=== PATIENT | female | born 1950 | race Caucasian/White ===

== ENCOUNTER 2021-08-12 15:26 | Inpatient (IN) ==
[2021-08-12] MEDS: *HR* FentaNYL (PF) 100 MCG/2 ML VIAL IVP STA ×2 (17:42→19:36)
[2021-08-12 18:03] LABS: Basophils # 0.1 K/mcL (0.0-0.2); Basophils % 0.5 %; Eosinophils # 0.3 K/mcL (0.0-0.6); Eosinophils % 1.9 %; Hematocrit 31.6 % (35.3-44.9); Hemoglobin 10.5 g/dL (11.5-15.4); Immature Granulocytes % 0.8 % (0-4); Lymphocytes # 2.3 K/mcL (0.6-4.6); Lymphocytes % 17.7 %; Mean Corpuscular HGB Conc 33.2 g/dL (31.6-35.5); Mean Corpuscular Volume 87.3 fL (83.0-100.0); Mean Platelet Volume 9.1 fL (9.4-12.4); Monocytes % 7.5 %; Neutrophils # 9.2 K/mcL (1.6-8.9); Platelet Count 367 K/mcL (140-400); Red Blood Count 3.62 M/mcL (3.82-4.97); Red Cell Distribution Width 13.2 % (11.5-14.5); Segmented Neutrophils % 71.6 %; White Blood Count 12.9 K/mcL (4.3-11.1)
[2021-08-12 18:23] LABS: Calcium 8.6 mg/dL (8.6-10.3); Potassium 4.2 mEq/L (3.5-5.1)
[2021-08-12] MEDS ORDERED: Clindamycin 600 MG/50 ML 600 MG/50 ML IV.SOLN IVPB STA (19:04)
[2021-08-12] MEDS ORDERED: *HR* FentaNYL (PF) 100 MCG/2 ML VIAL IVP ONE (19:31)
[2021-08-12] MEDS ORDERED: Ondansetron ODT 4 MG TAB.RAPDIS SL PRN (20:22)
[2021-08-12] MEDS ORDERED: Naloxone 0.4 MG/ML INJ IVP PRN (20:22)
[2021-08-12] MEDS ORDERED: Acetaminophen 325 MG TABLET PO PRN (20:22)
[2021-08-12] MEDS ORDERED: Melatonin 3 MG TABLET PO PRN (20:22)
[2021-08-12] MEDS ORDERED: D5% in Water 1,000 ML IVC PRN (20:25)
[2021-08-12] MEDS ORDERED: *HR* Dextrose 50 % in Water (Syg) 50 ML SYRINGE IVP PRN (20:25)
[2021-08-12] MEDS ORDERED: Dextrose 4 GM Chewable Tablets PO PRN ×2 (20:25)
[2021-08-12] MEDS ORDERED: 0.9 % Sodium Chloride 1,000 ML IVC SCH (20:30)
[2021-08-12] MEDS: *HR* OxyCODONE Immed Rel 5 MG TABLET PO PRN (20:58)
[2021-08-12] MEDS ORDERED: Vancomycin 1 EACH in 0.9 % Sodium Chloride 250 ML IVPB PRN (23:00)
[2021-08-12] MEDS: *HR* HYDROcodone/Acet 5/325 mg TABLET PO PRN (23:39)
[2021-08-12] MEDS: Insulin LISPRO 300 UNITS/3 ML VIAL SUBQ SCH (23:40)
[2021-08-13] MEDS: carvediloL 25 MG TABLET PO SCH ×3 (01:32→17:33)
[2021-08-13] MEDS: Bumetanide 1 MG TABLET PO SCH ×4 (01:33→22:00)
[2021-08-13] MEDS: *HR* OxyCODONE Immed Rel 5 MG TABLET PO PRN ×4 (02:58→22:36)
[2021-08-13 05:26] LABS: Hematocrit 31.8 % (35.3-44.9); Hemoglobin 10.7 g/dL (11.5-15.4); Mean Corpuscular HGB Conc 33.6 g/dL (31.6-35.5); Mean Corpuscular Hemoglobin 28.6 pg (28.0-33.3); Mean Platelet Volume 9.2 fL (9.4-12.4); Platelet Count 342 K/mcL (140-400); Red Blood Count 3.74 M/mcL (3.82-4.97); Red Cell Distribution Width 13.3 % (11.5-14.5)
[2021-08-13] MEDS: Clindamycin 600 MG/50 ML 600 MG/50 ML IV.SOLN IVPB SCH ×2 (05:35→14:19)
[2021-08-13] MEDS: *HR* HYDROcodone/Acet 5/325 mg TABLET PO PRN ×2 (05:36→14:16)
[2021-08-13] MEDS: Sucralfate 1 GM TABLET PO SCH ×2 (08:16→17:33)
[2021-08-13 08:21] LABS: Calcium 8.4 mg/dL (8.6-10.3); Chol/HDL Ratio 5.1 (0-4.9); Magnesium 1.7 mg/dL (1.6-2.6); Phosphorous 3.1 mg/dL (2.7-4.5); Potassium 3.7 mEq/L (3.5-5.1)
[2021-08-13] MEDS: Insulin LISPRO 300 UNITS/3 ML VIAL SUBQ SCH ×4 (08:21→21:40)
[2021-08-13] MEDS ORDERED: amLODIPine 5 MG TABLET PO SCH (09:00)
[2021-08-13] MEDS ORDERED: 0.9 % Sodium Chloride 1,000 ML IVC SCH (10:00)
[2021-08-13] MEDS ORDERED: *HR* LORazepam 0.5 MG TABLET PO PRN (14:40)
[2021-08-13] MEDS ORDERED: Acetaminophen/Butalbital/CaffeineTABLET PO PRN (14:40)
[2021-08-13] MEDS ORDERED: Cefepime HCl 2,000 MG in 0.9 % Sodium Chloride Mini Bag 100 ML IVPB SCH ×2 (16:00)
[2021-08-13] MEDS ORDERED: hydrALAZINE 25 MG TABLET PO SCH (16:00)
[2021-08-13] MEDS ORDERED: Lidocaine HCL 4 ML Topical Solution (Laryng-O-Jet Kit Sterile Pak) TP ONE (18:28)
[2021-08-13] MEDS ORDERED: *HR* Propofol 200 MG/20 ML VIAL IVP ONE (18:28)
[2021-08-13] MEDS ORDERED: Ondansetron 4 MG/2 ML VIAL ONE (18:28)
[2021-08-13] MEDS ORDERED: Lidocaine -MPF 2% 5 ML VIAL ONE (18:28)
[2021-08-13] MEDS ORDERED: *HR* FentaNYL (PF) 100 MCG/2 ML VIAL ONE ×2 (19:00→19:35)
[2021-08-13] MEDS ORDERED: Ketamine HCL *QUVA* 50mg (1mL) SYRINGE ONE (19:19)
[2021-08-13] MEDS: *HR* HYDROmorphone (PF) 1 MG/ML SYRINGE ONE ×2 (19:58→20:03)
[2021-08-13] MEDS: *HR* HYDROmorphone PF 0.5 MG/0.5 ML SYRINGE IVP PRN ×2 (20:08→20:13)
[2021-08-13] MEDS ORDERED: Ringers Solution, Lactated 1,000 ML ONE (20:46)
[2021-08-13] MEDS ORDERED: metroNIDAZOLE 500 MG TABLET PO SCH (21:00)
[2021-08-13] MEDS ORDERED: Melatonin 3 MG TABLET PO SCH (21:00)
[2021-08-13] MEDS ORDERED: *HR* Dextrose 50 % in Water (Syg) 50 ML SYRINGE IVP PRN (21:30)
[2021-08-13] MEDS ORDERED: Dextrose 4 GM Chewable Tablets PO PRN ×2 (21:30)
[2021-08-13] MEDS ORDERED: Naloxone 0.4 MG/ML INJ IVP PRN (21:30)
[2021-08-13] MEDS ORDERED: Vancomycin 1 EACH in 0.9 % Sodium Chloride 250 ML IVPB PRN (21:30)
[2021-08-13] MEDS ORDERED: Acetaminophen 325 MG TABLET PO PRN (21:30)
[2021-08-13] MEDS ORDERED: D5% in Water 1,000 ML IVC PRN (21:30)
[2021-08-13] MEDS: Melatonin 3 MG TABLET PO SCH (21:57)
[2021-08-13] MEDS: Ondansetron ODT 4 MG TAB.RAPDIS SL PRN (21:58)
[2021-08-13] MEDS ORDERED: *HR* Metoprolol 5 MG/5 ML VIAL IVP ONE (22:09)
[2021-08-14] MEDS: Melatonin 3 MG TABLET PO PRN ×2 (00:19→21:21)
[2021-08-14] MEDS: hydrALAZINE 25 MG TABLET PO SCH ×3 (00:20→15:02)
[2021-08-14] MEDS: Acetaminophen/Butalbital/CaffeineTABLET PO PRN ×3 (00:20→21:19)
[2021-08-14] MEDS: 0.9 % Sodium Chloride 1,000 ML IVC SCH ×2 (00:30→13:02)
[2021-08-14] MEDS: Cefepime HCl 2,000 MG in 0.9 % Sodium Chloride Mini Bag 100 ML IVPB SCH ×2 (03:50→14:54)
[2021-08-14 04:05] LABS: Basophils # 0.1 K/mcL (0.0-0.2); Basophils % 0.4 %; Eosinophils # 0.1 K/mcL (0.0-0.6); Eosinophils % 0.4 %; Hematocrit 30.8 % (35.3-44.9); Hemoglobin 10.2 g/dL (11.5-15.4); Immature Granulocytes % 1.6 % (0-4); Lymphocytes # 1.6 K/mcL (0.6-4.6); Lymphocytes % 11.2 %; Mean Corpuscular HGB Conc 33.1 g/dL (31.6-35.5); Mean Corpuscular Hemoglobin 29.3 pg (28.0-33.3); Mean Corpuscular Volume 88.5 fL (83.0-100.0); Mean Platelet Volume 9.2 fL (9.4-12.4); Monocytes # 0.6 K/mcL (0.0-1.3); Monocytes % 4.4 %; Neutrophils # 11.5 K/mcL (1.6-8.9); Platelet Count 371 K/mcL (140-400); Red Blood Count 3.48 M/mcL (3.82-4.97); Red Cell Distribution Width 13.2 % (11.5-14.5)
[2021-08-14] MEDS: *HR* OxyCODONE Immed Rel 5 MG TABLET PO PRN ×3 (04:43→18:31)
[2021-08-14 05:34] LABS: Calcium 7.9 mg/dL (8.6-10.3); Potassium 3.8 mEq/L (3.5-5.1)
[2021-08-14] MEDS ORDERED: *HR* Enoxaparin 30 MG/0.3 ML SYRINGE SQ SCH ×2 (06:00)
[2021-08-14] MEDS: Sucralfate 1 GM TABLET PO SCH ×2 (06:16→14:52)
[2021-08-14] MEDS: metroNIDAZOLE 500 MG TABLET PO SCH ×3 (08:07→21:20)
[2021-08-14] MEDS: amLODIPine 5 MG TABLET PO SCH (08:07)
[2021-08-14] MEDS: carvediloL 25 MG TABLET PO SCH ×2 (08:08→16:50)
[2021-08-14] MEDS: Bumetanide 1 MG TABLET PO SCH ×2 (08:08→21:21)
[2021-08-14] MEDS: *HR* HYDROcodone/Acet 5/325 mg TABLET PO PRN ×2 (08:10→14:52)
[2021-08-14] MEDS: Insulin LISPRO 300 UNITS/3 ML VIAL SUBQ SCH ×4 (08:13→21:24)
[2021-08-14] MEDS: Ondansetron ODT 4 MG TAB.RAPDIS SL PRN (08:47)
[2021-08-14 13:02] LABS: Estimated Average Glucose 289 mg/dl; Hemoglobin A1C 11.7 %
[2021-08-14] MEDS: *HR* Heparin 5,000 UNIT/ML VIAL SQ SCH ×2 (14:53→21:23)
[2021-08-14] MEDS: Ondansetron 4 MG/2 ML VIAL IVP PRN ×2 (14:54→22:30)
[2021-08-14] MEDS: Melatonin 3 MG TABLET PO SCH (21:20)
[2021-08-15] MEDS: hydrALAZINE 25 MG TABLET PO SCH ×4 (00:44→23:23)
[2021-08-15] MEDS: *HR* OxyCODONE Immed Rel 5 MG TABLET PO PRN ×3 (00:45→21:48)
[2021-08-15] MEDS: Acetaminophen/Butalbital/CaffeineTABLET PO PRN ×4 (01:43→23:24)
[2021-08-15] MEDS: *HR* LORazepam 0.5 MG TABLET PO PRN ×2 (01:44→23:24)
[2021-08-15] MEDS: Cefepime HCl 2,000 MG in 0.9 % Sodium Chloride Mini Bag 100 ML IVPB SCH ×2 (05:02→15:41)
[2021-08-15] MEDS: *HR* Heparin 5,000 UNIT/ML VIAL SQ SCH ×3 (05:05→21:49)
[2021-08-15 06:21] LABS: Basophils # 0.1 K/mcL (0.0-0.2); Basophils % 0.5 %; Eosinophils # 0.2 K/mcL (0.0-0.6); Eosinophils % 1.6 %; Hematocrit 32.5 % (35.3-44.9); Hemoglobin 10.5 g/dL (11.5-15.4); Lymphocytes # 2.4 K/mcL (0.6-4.6); Lymphocytes % 21.5 %; Mean Corpuscular HGB Conc 32.3 g/dL (31.6-35.5); Mean Corpuscular Hemoglobin 28.2 pg (28.0-33.3); Mean Corpuscular Volume 87.4 fL (83.0-100.0); Mean Platelet Volume 9.1 fL (9.4-12.4); Monocytes # 0.8 K/mcL (0.0-1.3); Monocytes % 6.9 %; Neutrophils # 7.6 K/mcL (1.6-8.9); Platelet Count 387 K/mcL (140-400); Red Blood Count 3.72 M/mcL (3.82-4.97); Red Cell Distribution Width 13.4 % (11.5-14.5); Segmented Neutrophils % 68.5 %; White Blood Count 11.1 K/mcL (4.3-11.1)
[2021-08-15 06:48] LABS: Calcium 8.3 mg/dL (8.6-10.3); Magnesium 1.6 mg/dL (1.6-2.6); Phosphorous 2.9 mg/dL (2.7-4.5); Potassium 3.4 mEq/L (3.5-5.1)
[2021-08-15] MEDS: metroNIDAZOLE 500 MG TABLET PO SCH ×3 (08:17→21:50)
[2021-08-15] MEDS: *HR* HYDROcodone/Acet 5/325 mg TABLET PO PRN ×2 (08:17→15:42)
[2021-08-15] MEDS: Sucralfate 1 GM TABLET PO SCH ×2 (08:17→15:42)
[2021-08-15] MEDS: amLODIPine 5 MG TABLET PO SCH (08:17)
[2021-08-15] MEDS: carvediloL 25 MG TABLET PO SCH ×2 (08:18→15:43)
[2021-08-15] MEDS: Bumetanide 1 MG TABLET PO SCH ×2 (08:18→21:55)
[2021-08-15] MEDS: Insulin LISPRO 300 UNITS/3 ML VIAL SUBQ SCH ×4 (08:19→22:00)
[2021-08-15] MEDS: Insulin DETEMIR 100 UNIT/ML X5UNITS SUBQ SCH (09:35)
[2021-08-15] MEDS: Ondansetron 4 MG/2 ML VIAL IVP PRN ×2 (11:49→21:49)
[2021-08-15] MEDS: Melatonin 3 MG TABLET PO SCH (21:49)
[2021-08-15] MEDS: Melatonin 3 MG TABLET PO PRN (21:50)
[2021-08-16] MEDS: Cefepime HCl 2,000 MG in 0.9 % Sodium Chloride Mini Bag 100 ML IVPB SCH ×2 (03:59→15:37)
[2021-08-16] MEDS: *HR* OxyCODONE Immed Rel 5 MG TABLET PO PRN (03:59)
[2021-08-16] MEDS: Acetaminophen/Butalbital/CaffeineTABLET PO PRN ×4 (05:36→20:46)
[2021-08-16] MEDS: *HR* Heparin 5,000 UNIT/ML VIAL SQ SCH ×3 (05:37→20:48)
[2021-08-16 05:58] LABS: Basophils # 0.1 K/mcL (0.0-0.2); Basophils % 0.8 %; Eosinophils # 0.3 K/mcL (0.0-0.6); Eosinophils % 2.2 %; Hematocrit 31.4 % (35.3-44.9); Hemoglobin 10.4 g/dL (11.5-15.4); Immature Granulocytes % 1.8 % (0-4); Lymphocytes # 2.1 K/mcL (0.6-4.6); Lymphocytes % 18.3 %; Mean Corpuscular HGB Conc 33.1 g/dL (31.6-35.5); Mean Corpuscular Hemoglobin 29.1 pg (28.0-33.3); Mean Platelet Volume 8.8 fL (9.4-12.4); Monocytes # 0.9 K/mcL (0.0-1.3); Monocytes % 7.4 %; Neutrophils # 8.1 K/mcL (1.6-8.9); Platelet Count 399 K/mcL (140-400); Red Blood Count 3.57 M/mcL (3.82-4.97); Red Cell Distribution Width 13.4 % (11.5-14.5); Segmented Neutrophils % 69.5 %; White Blood Count 11.7 K/mcL (4.3-11.1)
[2021-08-16 06:24] LABS: Magnesium 1.5 mg/dL (1.6-2.6); Phosphorous 2.5 mg/dL (2.7-4.5)
[2021-08-16 06:25] LABS: Calcium 8.2 mg/dL (8.6-10.3); Potassium 3.8 mEq/L (3.5-5.1)
[2021-08-16] MEDS: Insulin DETEMIR 100 UNIT/ML X5UNITS SUBQ SCH (08:18)
[2021-08-16] MEDS: Insulin LISPRO 300 UNITS/3 ML VIAL SUBQ SCH ×4 (08:18→20:48)
[2021-08-16] MEDS: amLODIPine 5 MG TABLET PO SCH (08:19)
[2021-08-16] MEDS: metroNIDAZOLE 500 MG TABLET PO SCH ×3 (08:19→20:37)
[2021-08-16] MEDS: carvediloL 25 MG TABLET PO SCH ×2 (08:19→15:36)
[2021-08-16] MEDS: hydrALAZINE 25 MG TABLET PO SCH ×2 (08:19→15:36)
[2021-08-16] MEDS: Sucralfate 1 GM TABLET PO SCH ×2 (08:19→15:36)
[2021-08-16] MEDS: Bumetanide 1 MG TABLET PO SCH ×2 (08:19→20:36)
[2021-08-16] MEDS: *HR* HYDROcodone/Acet 5/325 mg TABLET PO PRN (09:32)
[2021-08-16] MEDS ORDERED: *HR* FentaNYL (PF) 100 MCG/2 ML VIAL ONE ×2 (10:05→11:26)
[2021-08-16] MEDS ORDERED: *HR* Midazolam HCl 2 MG/2 ML VIAL ONE ×2 (10:05→11:30)
[2021-08-16] MEDS ORDERED: *HR* Heparin 10,000 UNIT/10 ML VIAL ONE (10:05)
[2021-08-16] MEDS ORDERED: Heparin 1,000 UNITS/500 mL 500 ML ONE (10:06)
[2021-08-16] MEDS ORDERED: 0.9 % Sodium Chloride 1,000 ML ONE (10:06)
[2021-08-16] MEDS: Morphine Sulfate ER (12 HR) 15 MG TABLET.ER PO SCH (15:36)
[2021-08-16] MEDS ORDERED: Morphine Sulfate ER (12 HR) 15 MG TABLET.ER PO SCH (18:00)
[2021-08-16] MEDS: Melatonin 3 MG TABLET PO SCH (20:38)
[2021-08-16] MEDS: *HR* LORazepam 0.5 MG TABLET PO PRN (20:47)
[2021-08-17] MEDS: Morphine Sulfate ER (12 HR) 15 MG TABLET.ER PO SCH ×4 (00:38→23:57)
[2021-08-17] MEDS: hydrALAZINE 25 MG TABLET PO SCH ×4 (00:38→23:57)
[2021-08-17] MEDS: Acetaminophen/Butalbital/CaffeineTABLET PO PRN ×3 (00:40→08:27)
[2021-08-17] MEDS: Cefepime HCl 2,000 MG in 0.9 % Sodium Chloride Mini Bag 100 ML IVPB SCH ×2 (04:03→17:18)
[2021-08-17] MEDS: *HR* Heparin 5,000 UNIT/ML VIAL SQ SCH ×3 (07:26→21:55)
[2021-08-17] MEDS: amLODIPine 5 MG TABLET PO SCH (08:27)
[2021-08-17] MEDS: Bumetanide 1 MG TABLET PO SCH ×2 (08:28→21:53)
[2021-08-17] MEDS: metroNIDAZOLE 500 MG TABLET PO SCH ×3 (08:28→21:54)
[2021-08-17] MEDS: Sucralfate 1 GM TABLET PO SCH ×2 (08:28→17:18)
[2021-08-17] MEDS: carvediloL 25 MG TABLET PO SCH ×2 (08:28→17:18)
[2021-08-17] MEDS: Insulin LISPRO 300 UNITS/3 ML VIAL SUBQ SCH ×4 (08:36→21:37)
[2021-08-17] MEDS: Insulin DETEMIR 100 UNIT/ML X5UNITS SUBQ SCH (08:36)
[2021-08-17] MEDS: Ondansetron 4 MG/2 ML VIAL IVP PRN (08:36)
[2021-08-17] MEDS ORDERED: Morphine Sulfate ER (12 HR) 15 MG TABLET.ER PO ONE (10:48)
[2021-08-17] MEDS: Melatonin 3 MG TABLET PO SCH (21:55)
[2021-08-18] MEDS: Acetaminophen/Butalbital/CaffeineTABLET PO PRN (00:25)
[2021-08-18] MEDS: Cefepime HCl 2,000 MG in 0.9 % Sodium Chloride Mini Bag 100 ML IVPB SCH ×2 (03:53→18:41)
[2021-08-18 04:50] LABS: Basophils # 0.1 K/mcL (0.0-0.2); Basophils % 0.6 %; Eosinophils # 0.4 K/mcL (0.0-0.6); Eosinophils % 3.4 %; Hematocrit 28.8 % (35.3-44.9); Hemoglobin 9.4 g/dL (11.5-15.4); Immature Granulocytes % 1.6 % (0-4); Lymphocytes # 2.5 K/mcL (0.6-4.6); Lymphocytes % 20.1 %; Mean Corpuscular HGB Conc 32.6 g/dL (31.6-35.5); Mean Corpuscular Hemoglobin 28.5 pg (28.0-33.3); Mean Corpuscular Volume 87.3 fL (83.0-100.0); Mean Platelet Volume 8.8 fL (9.4-12.4); Monocytes # 0.9 K/mcL (0.0-1.3); Monocytes % 7.3 %; Neutrophils # 8.3 K/mcL (1.6-8.9); Platelet Count 356 K/mcL (140-400); Red Cell Distribution Width 13.8 % (11.5-14.5); White Blood Count 12.5 K/mcL (4.3-11.1)
[2021-08-18] MEDS: *HR* Heparin 5,000 UNIT/ML VIAL SQ SCH ×3 (05:03→22:03)
[2021-08-18 05:09] LABS: Potassium 3.6 mEq/L (3.5-5.1)
[2021-08-18] MEDS: Insulin LISPRO 300 UNITS/3 ML VIAL SUBQ SCH ×4 (09:13→21:53)
[2021-08-18] MEDS: hydrALAZINE 25 MG TABLET PO SCH ×3 (10:00→18:04)
[2021-08-18] MEDS: carvediloL 25 MG TABLET PO SCH ×3 (10:00→18:04)
[2021-08-18] MEDS: Insulin DETEMIR 100 UNIT/ML X5UNITS SUBQ SCH (10:00)
[2021-08-18] MEDS: Bumetanide 1 MG TABLET PO SCH ×3 (10:00→21:53)
[2021-08-18] MEDS: Morphine Sulfate ER (12 HR) 15 MG TABLET.ER PO SCH (10:00)
[2021-08-18] MEDS: Sucralfate 1 GM TABLET PO SCH ×3 (10:00→18:04)
[2021-08-18] MEDS: amLODIPine 5 MG TABLET PO SCH ×2 (10:00→11:58)
[2021-08-18] MEDS: metroNIDAZOLE 500 MG TABLET PO SCH ×3 (10:00→22:08)
[2021-08-18] MEDS ORDERED: *HR* OxyCODONE/APAP 5/325 TABLET PO PRN (11:02)
[2021-08-18] MEDS ORDERED: Morphine Sulfate ER (12 HR) 15 MG TABLET.ER PO SCH (18:00)
[2021-08-18] MEDS: Melatonin 3 MG TABLET PO SCH (21:54)
[2021-08-19 00:25] LABS: Bilirubin,Urine Negative (Negative); Blood,Urine Negative (Negative); Clarity,Urine Clear (Clear); Color,Urine Light-Yellow (Yellow); Glucose,Urine (UA) Normal (Normal); Ketones,Urine Negative (Negative); Leukocyte Esterase,Urine Negative (Negative); Mucus,Urine Few per lpf (None-Few); Nitrite,Urine Negative (Negative); PH,Urine 6.5 pH Units (5.0-8.0); Protein,Urine 100 mg/dL (Neg-Trace); RBC,Urine 0-3 per hpf (0-3); Specific Gravity,Urine 1.015 (1.010-1.025); Squamous Epithelial Cell,Urine Few per hpf (None-Few); Urobilinogen,Urine Normal (Normal); WBC,Urine 0-3 per hpf (0-3)
[2021-08-19] MEDS: hydrALAZINE 25 MG TABLET PO SCH ×4 (00:49→23:58)
[2021-08-19] MEDS: Cefepime HCl 2,000 MG in 0.9 % Sodium Chloride Mini Bag 100 ML IVPB SCH ×2 (03:50→17:11)
[2021-08-19 04:58] LABS: Basophils # 0.1 K/mcL (0.0-0.2); Basophils % 0.6 %; Eosinophils # 0.4 K/mcL (0.0-0.6); Eosinophils % 2.6 %; Hematocrit 31.8 % (35.3-44.9); Hemoglobin 10.7 g/dL (11.5-15.4); Immature Granulocytes % 1.6 % (0-4); Lymphocytes # 2.6 K/mcL (0.6-4.6); Lymphocytes % 17.9 %; Mean Corpuscular HGB Conc 33.6 g/dL (31.6-35.5); Mean Corpuscular Hemoglobin 29.2 pg (28.0-33.3); Mean Corpuscular Volume 86.9 fL (83.0-100.0); Mean Platelet Volume 9.1 fL (9.4-12.4); Monocytes # 0.8 K/mcL (0.0-1.3); Monocytes % 5.3 %; Neutrophils # 10.5 K/mcL (1.6-8.9); Platelet Count 442 K/mcL (140-400); Red Blood Count 3.66 M/mcL (3.82-4.97); Red Cell Distribution Width 13.6 % (11.5-14.5); White Blood Count 14.6 K/mcL (4.3-11.1)
[2021-08-19 05:06] LABS: INR 1.4; Prothrombin Time 15.5 Seconds (9.4-12.1)
[2021-08-19 05:17] LABS: Calcium 8.6 mg/dL (8.6-10.3); Potassium 3.4 mEq/L (3.5-5.1)
[2021-08-19] MEDS: *HR* Heparin 5,000 UNIT/ML VIAL SQ SCH ×3 (05:54→20:46)
[2021-08-19] MEDS ORDERED: Vancomycin 500 MG in 0.9 % Sodium Chloride Mini Bag 100 ML IVPB ONE (06:00)
[2021-08-19] MEDS: amLODIPine 5 MG TABLET PO SCH (06:27)
[2021-08-19] MEDS: Insulin LISPRO 300 UNITS/3 ML VIAL SUBQ SCH ×5 (07:47→20:46)
[2021-08-19] MEDS: Sucralfate 1 GM TABLET PO SCH ×2 (07:57→17:11)
[2021-08-19] MEDS: carvediloL 25 MG TABLET PO SCH ×2 (07:57→17:11)
[2021-08-19] MEDS: metroNIDAZOLE 500 MG TABLET PO SCH ×3 (07:57→20:45)
[2021-08-19] MEDS: Bumetanide 1 MG TABLET PO SCH ×2 (07:57→20:48)
[2021-08-19] MEDS: Insulin DETEMIR 100 UNIT/ML X5UNITS SUBQ SCH (08:33)
[2021-08-19] MEDS: Melatonin 3 MG TABLET PO SCH (20:46)
[2021-08-19 21:31] LABS: VBG HCO3 20 mEq/L (21-27); VBG PCO2 34 mmHg (41-51); VBG PH 7.38 pH Units (7.32-7.42); VBG PO2 136 mmHg (25-50)
[2021-08-20] MEDS: *HR* LORazepam 0.5 MG TABLET PO PRN (00:36)
[2021-08-20] MEDS: Melatonin 3 MG TABLET PO PRN (00:36)
[2021-08-20] MEDS: Cefepime HCl 2,000 MG in 0.9 % Sodium Chloride Mini Bag 100 ML IVPB SCH (03:44)
[2021-08-20] MEDS: *HR* Heparin 5,000 UNIT/ML VIAL SQ SCH ×3 (03:45→21:35)
[2021-08-20] MEDS ORDERED: Vancomycin 500 MG in 0.9 % Sodium Chloride Mini Bag 100 ML IVPB SCH (08:00)
[2021-08-20 08:08] LABS: Calcium 8.7 mg/dL (8.6-10.3); Magnesium 1.9 mg/dL (1.6-2.6); Phosphorous 2.2 mg/dL (2.7-4.5); Potassium 3.3 mEq/L (3.5-5.1)
[2021-08-20 08:09] LABS: Basophils # 0.1 K/mcL (0.0-0.2); Basophils % 0.7 %; Eosinophils # 0.5 K/mcL (0.0-0.6); Eosinophils % 2.8 %; Hematocrit 31.1 % (35.3-44.9); Hemoglobin 10.6 g/dL (11.5-15.4); Immature Granulocytes % 1.5 % (0-4); Lymphocytes # 2.7 K/mcL (0.6-4.6); Lymphocytes % 16.3 %; Mean Corpuscular HGB Conc 34.1 g/dL (31.6-35.5); Mean Corpuscular Hemoglobin 29.7 pg (28.0-33.3); Mean Corpuscular Volume 87.1 fL (83.0-100.0); Mean Platelet Volume 9.1 fL (9.4-12.4); Monocytes # 0.9 K/mcL (0.0-1.3); Monocytes % 5.4 %; Neutrophils # 12.1 K/mcL (1.6-8.9); Platelet Count 495 K/mcL (140-400); Red Blood Count 3.57 M/mcL (3.82-4.97); Red Cell Distribution Width 13.6 % (11.5-14.5); Segmented Neutrophils % 73.3 %; White Blood Count 16.5 K/mcL (4.3-11.1)
[2021-08-20] MEDS: amLODIPine 5 MG TABLET PO SCH (09:02)
[2021-08-20] MEDS: metroNIDAZOLE 500 MG TABLET PO SCH ×3 (09:02→21:32)
[2021-08-20] MEDS: Bumetanide 1 MG TABLET PO SCH ×2 (09:02→21:34)
[2021-08-20] MEDS: Insulin DETEMIR 100 UNIT/ML X5UNITS SUBQ SCH (09:05)
[2021-08-20] MEDS: Sucralfate 1 GM TABLET PO SCH (10:48)
[2021-08-20] MEDS: Insulin LISPRO 300 UNITS/3 ML VIAL SUBQ SCH ×2 (10:48→13:45)
[2021-08-20] MEDS: hydrALAZINE 25 MG TABLET PO SCH (11:25)
[2021-08-20] MEDS: carvediloL 25 MG TABLET PO SCH (11:26)
[2021-08-20] MEDS ORDERED: Potassium Phosphate 44 MEQ in 0.9 % Sodium Chloride 250 ML IVPB ONE (12:15)
[2021-08-20] MEDS ORDERED: *HR* FentaNYL (PF) 100 MCG/2 ML VIAL ONE (15:44)
[2021-08-20] MEDS ORDERED: Lidocaine -MPF 2% 5 ML VIAL ONE (15:44)
[2021-08-20] MEDS ORDERED: Ondansetron 4 MG/2 ML VIAL ONE (15:44)
[2021-08-20] MEDS ORDERED: Ringers Solution, Lactated 1,000 ML IVC SCH ×2 (16:00→18:30)
[2021-08-20] MEDS ORDERED: Bupivacaine/Clonidine Syringe 20 ML, Syringe LUER-LOK 1 EACH TP ONE (16:15)
[2021-08-20] MEDS ORDERED: *HR* HYDROMORPHONE 2 MG/ML VIAL ONE (17:17)
[2021-08-20] MEDS ORDERED: Dextrose 4 GM Chewable Tablets PO PRN ×2 (18:30)
[2021-08-20] MEDS ORDERED: Acetaminophen 325 MG TABLET PO PRN (18:30)
[2021-08-20] MEDS ORDERED: D5% in Water 1,000 ML IVC PRN (18:30)
[2021-08-20] MEDS ORDERED: *HR* LORazepam 0.5 MG TABLET PO PRN (18:30)
[2021-08-20] MEDS ORDERED: Melatonin 3 MG TABLET PO PRN (18:30)
[2021-08-20] MEDS ORDERED: *HR* Dextrose 50 % in Water (Syg) 50 ML SYRINGE IVP PRN (18:30)
[2021-08-20] MEDS ORDERED: Naloxone 0.4 MG/ML INJ IVP PRN (18:30)
[2021-08-20] MEDS ORDERED: Lactobacillus 1 EACH CAP.SPRINK PO SCH (21:00)
[2021-08-20] MEDS ORDERED: Insulin LISPRO 300 UNITS/3 ML VIAL SUBQ SCH (21:00)
[2021-08-20] MEDS ORDERED: Melatonin 3 MG TABLET PO SCH (21:00)
[2021-08-20] MEDS: Lactobacillus 1 EACH CAP.SPRINK PO SCH (21:33)
[2021-08-20] MEDS: *HR* OxyCODONE/APAP 5/325 TABLET PO PRN (21:34)
[2021-08-21] MEDS ORDERED: Potassium Phosphate 44 MEQ in 0.9 % Sodium Chloride 250 ML IVPB ONE (00:45)
[2021-08-21] MEDS: hydrALAZINE 25 MG TABLET PO SCH ×3 (01:08→09:51)
[2021-08-21] MEDS: Ondansetron 4 MG/2 ML VIAL IVP PRN ×2 (01:09→10:24)
[2021-08-21] MEDS: Acetaminophen/Butalbital/CaffeineTABLET PO PRN ×2 (01:41→05:46)
[2021-08-21 01:55] LABS: Basophils # 0.1 K/mcL (0.0-0.2); Basophils % 0.5 %; Eosinophils % 0.2 %; Hematocrit 30.3 % (35.3-44.9); Hemoglobin 9.9 g/dL (11.5-15.4); Immature Granulocytes % 1.4 % (0-4); Lymphocytes # 1.6 K/mcL (0.6-4.6); Lymphocytes % 12.1 %; Mean Corpuscular HGB Conc 32.7 g/dL (31.6-35.5); Mean Corpuscular Hemoglobin 28.8 pg (28.0-33.3); Mean Corpuscular Volume 88.1 fL (83.0-100.0); Mean Platelet Volume 9.3 fL (9.4-12.4); Monocytes # 0.3 K/mcL (0.0-1.3); Monocytes % 2.2 %; Platelet Count 499 K/mcL (140-400); Red Blood Count 3.44 M/mcL (3.82-4.97); Red Cell Distribution Width 13.7 % (11.5-14.5); Segmented Neutrophils % 83.6 %; White Blood Count 13.1 K/mcL (4.3-11.1)
[2021-08-21 01:56] LABS: Calcium 8.4 mg/dL (8.6-10.3); Magnesium 1.8 mg/dL (1.6-2.6); Phosphorous 3.2 mg/dL (2.7-4.5); Potassium 3.6 mEq/L (3.5-5.1)
[2021-08-21] MEDS ORDERED: Cefepime HCl 2,000 MG in 0.9 % Sodium Chloride Mini Bag 100 ML IVPB SCH (04:00)
[2021-08-21] MEDS: *HR* Heparin 5,000 UNIT/ML VIAL SQ SCH ×2 (04:58→13:10)
[2021-08-21] MEDS: *HR* OxyCODONE/APAP 5/325 TABLET PO PRN (05:46)
[2021-08-21] MEDS: Cefepime HCl 2,000 MG in 0.9 % Sodium Chloride Mini Bag 100 ML IVPB SCH (07:24)
[2021-08-21] MEDS ORDERED: Sucralfate 1 GM TABLET PO SCH (07:30)
[2021-08-21] MEDS ORDERED: carvediloL 25 MG TABLET PO SCH (08:00)
[2021-08-21] MEDS ORDERED: Vancomycin 500 MG in 0.9 % Sodium Chloride Mini Bag 100 ML IVPB SCH (08:00)
[2021-08-21] MEDS: carvediloL 25 MG TABLET PO SCH (08:02)
[2021-08-21] MEDS: Sucralfate 1 GM TABLET PO SCH (08:03)
[2021-08-21] MEDS: Insulin LISPRO 300 UNITS/3 ML VIAL SUBQ SCH ×3 (08:03→11:46)
[2021-08-21] MEDS ORDERED: amLODIPine 5 MG TABLET PO SCH (09:00)
[2021-08-21] MEDS ORDERED: Insulin DETEMIR 100 UNIT/ML X5UNITS SUBQ SCH (09:00)
[2021-08-21] MEDS: metroNIDAZOLE 500 MG TABLET PO SCH (09:42)
[2021-08-21] MEDS: Bumetanide 1 MG TABLET PO SCH (09:42)
[2021-08-21] MEDS: Lactobacillus 1 EACH CAP.SPRINK PO SCH (09:43)
[2021-08-21 11:08] VITALS: TEMP 98.4
[2021-08-21] MEDS ORDERED: *HR* OxyCODONE Oral Soln 5 MG/5 ML UD.LIQ PO PRN (12:00)
[2021-08-21 13:29] VITALS: BP 145/77; PULSE 74; O2SAT 94
[2021-08-21] MEDS ORDERED: hydrALAZINE 25 MG TABLET PO SCH (16:00)
== END 2021-08-21 16:00 | disposition home health service (06) | DRG 253 ==
LOC: EMEROOARM 15:26 → 3BNU 15:26 → SUATTDRO 20:47
PROVIDERS: ADMIT Family Medicine; ATTEND Internal Medicine